=== PATIENT | female | born 1985 | race Caucasian/White ===

== ENCOUNTER → 2017-09-28 | Outpatient (CLI) | payer OTHER ==
--- NOTE | 2017-09-28 13:14 | MR ---
EXAMINATION TYPE: MR brain wo con DATE OF EXAM: 09/28/2017 COMPARISON: NONE HISTORY: Cervicalgia, Lumbago, Tremor TECHNIQUE: Multiplanar, multisequence images of the brain and brainstem is performed without intravenous contras t. FINDINGS: Diffusion weighted images demonstrate no evidence of a recent infarct or other diffusion ab normality. There is no extra-axial fluid collection. There is a single punctate focus of increased F LAIR/T2 signal within the centrum semiovale of the left frontal lobe on IR fat sat axial image 27 chuck suring 0.4 x 0.3 cm. No other significant white matter abnormality is appreciated. The ventricular s ystem and cisternal spaces are normal in size and appearance. The brain volume is age appropriate. R etained secretions are seen within the posterior nasopharynx. Midline structures demonstrate normal morphology. The craniocervical junction appears within normal limits. Scant mucosal thickening is seen within the ethmoid sinuses. The remaining visualized sinuse s are clear and the globes are intact. Multiple prominent but nonenlarged occipital and intraparotid lymph nodes are incidentally noted. IMPRESSION: 1. Single punctate focus of nonspecific white matter change within the centrum semiovale of the left frontal lobe. This is most likely related to focal sequela of microangiopathy or prior injury. Much l ess likely considerations are for vasculitis or demyelinating disease. 2. No evidence of intracranial mass effect or acute territorial infarct. 3. Minimal ethmoidal and nasal sinus disease.
--- NOTE | 2017-09-28 13:50 | MR ---
EXAMINATION TYPE: MR cspine/lspine wo con DATE OF EXAM: 09/28/2017 COMPARISON: NONE HISTORY: Cervicalgia, Lumbago, Tremor TECHNIQUE: Multiplanar, multisequence imaging of the lumbar spine is performed without IV contrast. FINDINGS: Cervical spine: Sagittal images of the cervical spine show vertebral body heights and alignment to appear satisfactor y. The intervertebral discs demonstrate normal heights and hydration other than mild disc desiccation at C4-C5 and C5-C6. The cervical cord is of normal signal. The bone marrow signal intensity is wit hin normal limits. There is straightening of the usual cervical lordosis. C2-C4: No significant disc disease, spinal canal stenosis or neural foraminal narrowing. C4-C5: There is a small posterior disc osteophyte complex and mild uncovertebral hypertrophy minimall y narrowing the left neural foramen and mildly narrowing the ventral subarachnoid space without signi ficant spinal canal stenosis. C5-C6: There is a broad-based disc bulge/disc osteophyte complex and mild uncovertebral hypertrophy m inimally narrowing the bilateral neural foramen and narrowing the ventral subarachnoid space creating mild spinal canal stenosis. No abnormal cervical cord signal. C6-T1: No significant disc disease, spinal canal stenosis or neural foraminal narrowing. Lumbar spine: Multilevel Modic type II endplate sclerosis is seen at the inferior endplate of L3, both superior and inferior endplates of L4, and superior endplate of L5. Disc desiccation is seen at L3-L4 and L4-L5. Remaining discs of the lumbar spine maintain normal hydration. Otherwise osseous bone marrow signal i s within normal limits. Disc desiccation is also seen T11-T12. The disc is not evaluated on axial evans ges at this level. Lumbar vertebral bodies maintain normal vertebral body heights and alignment. Conu s medullaris is unremarkable and terminates at L1-L2. L1-L2: No significant disc disease, spinal canal stenosis or neural foraminal narrowing. L2-L3: No significant disc disease, spinal canal stenosis or neural foraminal narrowing. L3-L4: There is a right eccentric broad-based disc bulge and minimal facet arthropathy without spinal canal stenosis. There is mild right neural foraminal narrowing. Left neural foramen is patent. L4-L5: There is a broad-based right eccentric disc bulge creating minimal right neural foraminal narr owing. Mild left facet arthropathy is noted. Left neural foramen is patent. No focality to suggest di sc herniation. No spinal canal stenosis. L5-S1: No significant disc disease, spinal canal stenosis or neural foraminal narrowing. IMPRESSION: 1. No evidence of disc herniation within the cervical spine or lumbar spine. 2. Mild degenerative disc disease within the cervical spine at C4-C6 creating mild spinal canal steno sis at C5-C6 and minimal neural foraminal narrowing as described above. 3. Mild multilevel degenerative disc disease of the lumbar spine without spinal canal stenosis. Mild right neural foraminal narrowing at L3-L5.
== END | disposition home or self-care (01) ==
LOC: RADMRIMAIN 10:56
PROVIDERS: ATTEND Family Medicine
DX: M48.02 Spinal stenosis, cervical region (principal); M50.321 Other cervical disc degeneration at C4-C5 level; M99.73 Connective tissue and disc stenosis of intervertebral foramina of lumbar region; M51.36 Other intervertebral disc degeneration, lumbar region; R90.89 Other abnormal findings on diagnostic imaging of central nervous system; R25.1 Tremor, unspecified
CPT/HCPCS: 70551; 72141; 72148

== ENCOUNTER → 2017-10-26 | Outpatient (CLI) | payer OTHER ==
--- NOTE | 2017-10-26 10:52 | MR ---
EXAMINATION TYPE: MR angio head wo con DATE OF EXAM: 10/26/2017 COMPARISON: NONE HISTORY: Headache / Family hx of brain aneurysm TECHNIQUE: Utilizing 3-D [id number] intracranial MRA of the [place] was performed. FINDINGS: The vertebrobasilar and carotid systems are patent. There is no sizable aneurysm or vascular malform ation. There is a hypoplastic A1 segment of the right anterior cerebral artery. Left vertebral arter y dominant. IMPRESSION: 1. No evidence of vascular malformation or sizable aneurysm.
== END ==
LOC: RADMRIMAIN 10:04
PROVIDERS: ATTEND Family Medicine
DX: R51 Headache (principal); Z82.49 Family history of ischemic heart disease and other diseases of the circulatory system
CPT/HCPCS: 70544

== ENCOUNTER → 2019-09-03 | Outpatient (CLI) | payer OTHER | END | disposition home or self-care (01) | LOC: LABWHC1 11:35 | PROVIDERS: ATTEND Family Medicine | DX: H66.91 Otitis media, unspecified, right ear (principal); R09.81 Nasal congestion; R68.83 Chills (without fever) | CPT/HCPCS: 87502 ==

== ENCOUNTER → 2022-01-27 | Outpatient (CLI) | payer OTHER ==
--- NOTE | 2022-01-29 11:15 | US ---
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 Pt states pelvic pain, bloating TECHNIQUE: Transabdominal sonographic images of the pelvis were acquired. Transvaginal sonographic i mages were medically necessary to better assess the anatomy. Date of LMP: 01/01/2022 FINDINGS: EXAM MEASUREMENTS: Uterus: 7.1 x 3.1 x 4.6 cm Endometrial Stripe: 0.6 cm Right Ovary: 2.3 x 1.8 x 1.9 cm Geospatial Scientist notes: Severely, morbidly obese pt, difficult to image pelvis 1. Uterus: Anteverted slightly heterogeneous myometrium, 0.8 cm Nabothian cyst in cervix 2. Endometrium: wnl 3. Right Ovary: wnl demonstrating some follicular change. 4. Left Ovary: Obscured by overlying bowel gas 5. Bilateral Adnexa: wnl 6. Posterior cul-de-sac: wnl IMPRESSION: 1. Slightly heterogeneous myometrium may be technical owing to large body habitus or could reflect di ffuse small fibroid change or adenomyosis. 2. Endometrial stripe measuring 6 mm. 3. An 8 mm cervical nabothian cyst noted. 4. The left ovary is obscured and not assessed.
== END | disposition home or self-care (01) ==
LOC: RADUSWWP 15:35
PROVIDERS: ATTEND Obstetrics & Gynecology
DX: Z01.419 Encounter for gynecological examination (general) (routine) without abnormal findings (principal)
CPT/HCPCS: 76830; 76856

== ENCOUNTER 2024-03-27 22:05 | Emergency (ER) | payer OTHER ==
[2024-03-27 22:52] LABS: Appearance,Urine Cloudy (Clear); Bilirubin,Urine Negative (Negative); Blood,Urine Large (Negative); Color,Urine Light Yellow; Glucose,Urine (UA) Negative (Negative); Ketones,Urine Negative (Negative); Leukocyte Esterase,Urine Trace (Negative); Mucus,Urine Rare /hpf; Nitrite,Urine Negative (Negative); PH, Urine 5.5 (5.0-8.0); Protein,Urine Negative (Negative); RBC,Urine 1 /hpf (0-5); Specific Gravity,Urine 1.024 (1.001-1.035); Squamous Epithelial Cell,Urine 4 /hpf (0-4); Urobilinogen,Urine <2.0 mg/dL (<2.0); WBC,Urine 4 /hpf (0-5)
--- NOTE | 2024-03-27 22:52 | ED ---
Female Urogenital HPI - General Source: patient, family, RN notes reviewed Mode of arrival: ambulatory Limitations: no limitations - History of Present Illness Last Menstrual Period: 03/27/24 <Doris Collazo - Last Filed: 03/28/24 00:06> <Ki Kyle - Last Filed: 03/28/24 03:11> - General Chief complaint: Vaginal Bleeding Stated complaint: Vaginal Bleeding Time Seen by Provider: 03/27/24 22:21 - History of Present Illness Initial comments: This is a 38-year-old female presents emergency department chief complaint of abdominal cramping over 4 days and vaginal bleeding started this evening. Patient states that she has been experiencing pain in the lower abdomen and back pain over the past days however had episode of vaginal bleeding. Patient has a history of bilateral tubal ligation 2 years ago and states that she has not had a menstrual cycle since. She denies urinary symptoms of dysuria, hematuria, increase in urinary frequency or urgency. Denies fevers, chills. Endorses nausea, denies emesis. denies passage of clots, states that this pain does feel similar to when she has had a hemorrhagic ovarian cyst in the past. (Doris Collazo) - Related Data Allergies Allergy/AdvReac Type Severity Reaction Status Date / Time amoxicillin [From Amoxil] Allergy Rash/Hives Verified 03/27/24 22:19 latex Allergy Rash/Hives Verified 03/27/24 22:19 Penicillins Allergy Rash/Hives Verified 03/27/24 22:19 Review of Systems ROS Other: All systems not noted in ROS Statement are negative. <Doris Collazo - Last Filed: 03/28/24 00:06> ROS Other: All systems not noted in ROS Statement are negative. <Ki Kyle - Last Filed: 03/28/24 03:11> ROS Statement: Those systems with pertinent positive or pertinent negative responses have been documented in the HPI. Past Medical History Additional Past Medical History / Comment(s): buldging disc Past Surgical History: Adenoidectomy, Tonsillectomy, Tubal Ligation Smoking Status: Current every day smoker <Doris Collazo - Last Filed: 03/28/24 00:06> General Exam Limitations: no limitations General appearance: alert, in no apparent distress Eye exam: Present: normal appearance, PERRL, EOMI. Absent: scleral icterus, conjunctival injection, periorbital swelling ENT exam: Present: normal exam, mucous membranes moist Neck exam: Present: normal inspection. Absent: tenderness, meningismus, lymphadenopathy Respiratory exam: Present: normal lung sounds bilaterally. Absent: respiratory distress, wheezes, rales, rhonchi, stridor Cardiovascular Exam: Present: regular rate, normal rhythm, normal heart sounds. Absent: systolic murmur, diastolic murmur, rubs, gallop, clicks GI/Abdominal exam: Present: soft, tenderness (right lower abdomen), normal bowel sounds. Absent: guarding, rebound, rigid Extremities exam: Present: normal inspection, full ROM, normal capillary refill. Absent: tenderness, pedal edema, joint swelling, calf tenderness Back exam: Present: full ROM, tenderness (right lumbar) Neurological exam: Present: alert, oriented X3, CN II-XII intact <Doris Collazo - Last Filed: 03/28/24 00:06> Course Vital Signs 03/27/24 03/28/24 03/28/24 22:16 00:04 02:31 Temperature 97.8 F 98.1 F Pulse Rate 65 57 L 59 L Respiratory 16 18 18 Rate Blood Pressure 175/109 153/85 148/93 O2 Sat by Pulse 95 97 96 Oximetry 03/28/24 02:36 Temperature 98.1 F Pulse Rate Respiratory Rate Blood Pressure O2 Sat by Pulse Oximetry Medical Decision Making - Lab Data Result diagrams: 03/27/24 22:57 03/27/24 22:57 <Doris Collazo - Last Filed: 03/28/24 00:06> - Lab Data Result diagrams: 03/27/24 22:57 03/27/24 22:57 <Ki Kyle - Last Filed: 03/28/24 03:11> - Medical Decision Making Was pt. sent in by a medical professional or institution (, PA, EMBEDDED SOFTWARE DESIGN ENGINEER, urgent care, hospital, or intermediate...) When possible be specific @ -[No] Did you speak to anyone other than the patient for history (EMS, parent, family, police, friend...)? What history was obtained from this source @ -[No] Did you review nursing and triage notes (agree or disagree)? Why? @ -[I reviewed and agree with nursing and triage notes] Were old charts reviewed (outside hosp., previous admission, EMS record, old EKG, old radiological studies, urgent care reports/EKG's, intermediate records)? Report findings @ -[No old charts were reviewed] Differential Diagnosis (chest pain, altered mental status, abdominal pain women, abdominal pain men, vaginal bleeding, weakness, fever, dyspnea, syncope, headache, dizziness, GI bleed, back pain, seizure, CVA, palpatations, mental health, musculoskeletal)? @ -Differential Abdominal Pain Women: Appendicitis, Cholecystitis, diverticulosis, ischemic bowel, pancreatitis, hepatitis, UTI, gastroenteritis, AAA, incarcerated hernia, bowel obstruction, constipation, inflammatory bowel, hepatitis, peptic ulcer disease, splenic infarction, perforated viscus, vulvitis, ovarian torsion, PID, kidney stone, placenta abruption, this is not meant to be an all-inclusive list EKG interpreted by me (3pts min.). @ -none X-rays interpreted by me (1pt min.). @ -[None done] CT interpreted by me (1pt min.). @ -[None done] U/S interpreted by me (1pt. min.). @ -[None done] What testing was considered but not performed or refused? (CT, X-rays, U/S, labs)? Why? @ -[None] What meds were considered but not given or refused? Why? @ -[None] Did you discuss the management of the patient with other professionals (professionals i.e. , PA, EMBEDDED SOFTWARE DESIGN ENGINEER, lab, RT, psych nurse, licensed master social worker, bath tester, teacher, staff electronic warfare officer, ed case manager)? Give summary @ -[No] Was smoking cessation discussed for >3mins.? @ -[No] Was critical care preformed (if so, how long)? @ -[No] Were there social determinants of health that impacted care today? How? (Homelessness, low income, unemployed, alcoholism, drug addiction, tr ansportation, low edu. Level, literacy, decrease access to med. care, long term, rehab)? @ -[No] Was there de-escalation of care discussed even if they declined (Discuss DNR or withdrawal of care, Hospice)? DNR status @ -[No] What co-morbidities impacted this encounter? (DM, HTN, Smoking, COPD, CAD, Canc er, CVA, ARF, Chemo, Hep., AIDS, mental health diagnosis, sleep apnea, morbid obesity)? @ -[None] Was patient admitted / discharged? Hospital course, mention meds given and route, prescriptions, significant lab abnormalities, going to OR and other pertinent info. @ -8-year-old female with vaginal bleeding and abdominal pain. On examination patient noted to have palpable callus of the right lower abdomen with radiation to her back. Due to patient experiencing vaginal bleeding and cramping she will be evaluated via labs and transvaginal ultrasound and symptomatically treated with Zofran and Toradol. labs remarkable for leukocytosis of 19.3, elevated neutrophils at 10.3. CMP unremarkable. Urinalysis reveals large blood, hcg negative. Patient's ultrasound results yes, patient has elevated white blood cell count of 19.3. She will be sent for CT of the abdomen and pelvis for fu rther evaluation of abdominal pain and elevated white blood cell count and given a liter fluid bolus in addition to further pain medication. Patient is signed out to Ki Kyle PA-C pending US and CT results. Undiagnosed new problem with uncertain prognosis? @ -[No] Drug Therapy requiring intensive monitoring for toxicity (Heparin, Nitro, Insulin, Cardizem)? @ -[No] Were any procedures done? @ -[No] Diagnosis/symptom? @ -[default] Acute, or Chronic, or Acute on Chronic? @ -[default] Uncomplicated (without systemic symptoms) or Complicated (systemic symptoms)? @ -[default] Side effects of treatment? @ -[No] Exacerbation, Progression, or Severe Exacerbation? @ -[No] Poses a threat to life or bodily function? How? (Chest pain, [place], [place], pneumonia, PE, COPD, DKA, ARF, appy, cholecystitis, CVA, Diverticulitis, Homicidal, Suicidal, threat to staff... and all critical care pts) @ -[No] (Doris Collazo) Patient signed out to me by Doris Collazo PA-C pending ultrasound and CT results. Ultrasound shows no acute findings. 2.9 cm left ovarian cyst. CT shows no acute findings. On reassessment the patient shows no acute signs of distress. She states that her pain is minimal. She is educated on today's findings and supportive management. Instructed to follow-up with her PARK AIDE. Discharged. Follow-up with PCP. Report back to ER with any new or worsening symptoms. Discussed return parameters and answered all questions. Patient conveyed verbal understanding and agreed to the plan. I discussed this case in detail with my attending Dr. Rodriguez Diagnosis/symptom? @Ovarian cyst Acute, or Chronic, or Acute on Chronic? @Acute Uncomplicated (without systemic symptoms) or Complicated (systemic symptoms)? @Uncomplicated Side effects of treatment? @None Exacerbation, Progression, or Severe Exacerbation] @No Poses a threat to life or bodily function? @No (Ki Kyle) - Lab Data Lab Results 03/27/24 03/27/24 03/27/24 Range/Units 22:42 22:42 22:57 WBC 19.3 H (3.8-10.6) k/uL RBC 4.98 (3.80-5.40) m/uL Hgb 14.6 (11.4-16.0) gm/dL Hct 45.7 (34.0-46.0) % MCV 91.6 (80.0-100.0) fL MCH 29.4 (25.0-35.0) pg MCHC 32.1 (31.0-37.0) g/dL RDW 12.8 (11.5-15.5) % Plt Count 341 (150-450) k/uL MPV 7.1 Neutrophils % 53 % Lymphocytes % 38 % Monocytes % 5 % Eosinophils % 1 % Basophils % 1 % Neutrophils # 10.3 H (1.3-7.7) k/uL Lymphocytes # 7.3 H (1.0-4.8) k/uL Monocytes # 1.0 (0-1.0) k/uL Eosinophils # 0.3 (0-0.7) k/uL Basophils # 0.1 (0-0.2) k/uL PT (10.0-12.5) sec INR (<1.2) APTT (22.0-30.0) sec Sodium (137-145) mmol/L Potassium (3.5-5.1) mmol/L Chloride (98-107) mmol/L Carbon Dioxide (22-30) mmol/L Anion Gap mmol/L BUN (7-17) mg/dL Creatinine (0.52-1.04) mg/dL Est GFR (CKD-EPI)AfAm (>60 ml/min/1.73 sqM) Est GFR (CKD-EPI)NonAf (>60 ml/min/1.73 sqM) Glucose (74-99) mg/dL Calcium (8.4-10.2) mg/dL Total Bilirubin (0.2-1.3) mg/dL AST (14-36) U/L ALT (4-34) U/L Alkaline Phosphatase (38-126) U/L Total Protein (6.3-8.2) g/dL Albumin (3.5-5.0) g/dL Urine Color Light Yellow Urine Appearance Cloudy H (Clear) Urine pH 5.5 (5.0-8.0) Ur Specific Barnum 1.024 (1.001-1.035) Urine Protein Negative (Negative) Urine Glucose (UA) Negative (Negative) Urine Ketones Negative (Negative) Urine Blood Large H (Negative) Urine Nitrite Negative (Negative) Urine Bilirubin Negative (Negative) Urine Urobilinogen <2.0 (<2.0) mg/dL Ur Leukocyte Esterase Trace H (Negative) Urine RBC 1 (0-5) /hpf Urine WBC 4 (0-5) /hpf Ur Squamous Epith Cells 4 (0-4) /hpf Urine Mucus Rare H (None) /hpf Urine HCG, Qual Not Detected (Not Detectd) 03/27/24 03/27/24 Range/Units 22:57 22:57 WBC (3.8-10.6) k/uL RBC (3.80-5.40) m/uL Hgb (11.4-16.0) gm/dL Hct (34.0-46.0) % MCV (80.0-100.0) fL MCH (25.0-35.0) pg MCHC (31.0-37.0) g/dL RDW (11.5-15.5) % Plt Count (150-450) k/uL MPV Neutrophils % % Lymphocytes % % Monocytes % % Eosinophils % % Basophils % % Neutrophils # (1.3-7.7) k/uL Lymphocytes # (1.0-4.8) k/uL Monocytes # (0-1.0) k/uL Eosinophils # (0-0.7) k/uL Basophils # (0-0.2) k/uL PT 9.8 L (10.0-12.5) sec INR 0.9 (<1.2) APTT 24.8 (22.0-30.0) sec Sodium 138 (137-145) mmol/L Potassium 3.9 (3.5-5.1) mmol/L Chloride 106 (98-107) mmol/L Carbon Dioxide 26 (22-30) mmol/L Anion Gap 6 mmol/L BUN 20 H (7-17) mg/dL Creatinine 0.73 (0.52-1.04) mg/dL Est GFR (CKD-EPI)AfAm >90 (>60 ml/min/1.73 sqM) Est GFR (CKD-EPI)NonAf >90 (>60 ml/min/1.73 sqM) Glucose 85 (74-99) mg/dL Calcium 9.3 (8.4-10.2) mg/dL Total Bilirubin 0.4 (0.2-1.3) mg/dL AST 19 (14-36) U/L ALT 18 (4-34) U/L Alkaline Phosphatase 79 (38-126) U/L Total Protein 6.5 (6.3-8.2) g/dL Albumin 3.9 (3.5-5.0) g/dL Urine Color Urine Appearance (Clear) Urine pH (5.0-8.0) Ur Specific Barnum (1.001-1.035) Urine Protein (Negative) Urine Glucose (UA) (Negative) Urine Ketones (Negative) Urine Blood (Negative) Urine Nitrite (Negative) Urine Bilirubin (Negative) Urine Urobilinogen (<2.0) mg/dL Ur Leukocyte Esterase (Negative) Urine RBC (0-5) /hpf Urine WBC (0-5) /hpf Ur Squamous Epith Cells (0-4) /hpf Urine Mucus (None) /hpf Urine HCG, Qual (Not Detectd) Disposition <Doris Collazo - Last Filed: 03/28/24 00:06> Is patient prescribed a controlled substance at d/c from ED?: No Time of Disposition: 02:15 <Ki Kyle - Last Filed: 03/28/24 03:11> Clinical Impression: Ovarian cyst Disposition: HOME SELF-CARE Condition: Good Instructions (If sedation given, give patient instructions): Ovarian Cyst (ED) Additional Instructions: Follow-up with your PARK AIDE. Report back to ER with any new or worsening symptoms. Referrals: Esthela Hammond MD [Primary Care Provider] - 1-2 days
[2024-03-27] MEDS: ONDANSETRON 4 MG/2 ML VIAL IVP STA (23:05)
[2024-03-27] MEDS: KETOROLAC 15 MG/ML 1 ML VIAL IVP STA (23:06)
[2024-03-27 23:22] LABS: Basophils # (A) 0.1 k/uL (0-0.2); Basophils % (A) 1 %; Eosinophils # (A) 0.3 k/uL (0-0.7); Eosinophils % (A) 1 %; HCT 45.7 % (34.0-46.0); HGB 14.6 gm/dL (11.4-16.0); Lymphocytes # (A) 7.3 k/uL (1.0-4.8); Lymphocytes % (A) 38 %; MCH 29.4 pg (25.0-35.0); MCHC 32.1 g/dL (31.0-37.0); MCV 91.6 fL (80.0-100.0); Mean Platelet Volume 7.1; Monocytes % (A) 5 %; Neutrophils # (A) 10.3 k/uL (1.3-7.7); Neutrophils % (A) 53 %; Platelet Count 341 k/uL (150-450); RBC 4.98 m/uL (3.80-5.40); RDW 12.8 % (11.5-15.5); WBC 19.3 k/uL (3.8-10.6)
[2024-03-27 23:42] LABS: ALT 18 U/L (4-34); AST 19 U/L (14-36); African American GFR (CKD) >90 (>60 ml/min/1.73 sqM); Albumin 3.9 g/dL (3.5-5.0); Alkaline Phosphatase 79 U/L (38-126); Anion Gap 6 mmol/L; Blood Urea Nitrogen 20 mg/dL (7-17); Calcium 9.3 mg/dL (8.4-10.2); Carbon Dioxide 26 mmol/L (22-30); Chloride 106 mmol/L (98-107); Glucose 85 mg/dL (74-99); Non-African American GFR(CKD) >90 (>60 ml/min/1.73 sqM); Potassium 3.9 mmol/L (3.5-5.1); Sodium 138 mmol/L (137-145); Total Bilirubin 0.4 mg/dL (0.2-1.3); Total Protein 6.5 g/dL (6.3-8.2)
[2024-03-27 23:43] LABS: INR 0.9 (<1.2); Partial Thromboplastin Time 24.8 sec (22.0-30.0); Prothrombin Time 9.8 sec (10.0-12.5)
[2024-03-28 00:04] VITALS: RESP 18; TEMP 98.1
[2024-03-28] MEDS: SODIUM CHLORIDE 0.9% 1,000 ML IV STA (00:38)
[2024-03-28] MEDS: HYDROmorphone 0.5 MG/0.5 ML SYRINGE IVP STA (00:40)
--- NOTE | 2024-03-28 01:26 | US ---
EXAM: US Pelvis Transvaginal CLINICAL HISTORY: ITS.REASON US Reason: heavy bleeding, pelvic cramping TECHNIQUE: Real-time transvaginal pelvic ultrasound with image documentation. Transvaginal imaging was used for better evaluation of the endometrium and adnexa. COMPARISON: No relevant prior studies available. FINDINGS: 1. Uterus: Anteverted There is a 1.2 x 0.5cm Nabothian cyst seen within the cervix. Otherwise appears WNL 2. Endometrium: wnl as best seen 3. Right Ovary: wnl as best seen today 4. Left Ovary: There is a 2.9 x 2.1 x 2.4cm anechoic area seen within the left ovary. Spectral, color and waveform doppler imaging shows good arterial and venous flow within the ovaries; there is no evidence for ovarian torsion. 5. Bilateral Adnexa: Obscured by overlying bowel gas 6. Posterior cul-de-sac: wnl IMPRESSION: No acute findings. 2.9 cm left ovarian cyst
--- NOTE | 2024-03-28 01:45 | CT ---
EXAM: CT Abdomen and Pelvis With Intravenous Contrast CLINICAL HISTORY: ITS.REASON CT Reason: ab pain TECHNIQUE: Axial computed tomography images of the abdomen and pelvis with intravenous contrast. CTDI is 63.7 mGy and DLP is 3892.8 mGy-cm. This CT exam was performed using one or more of the following dose reduction techniques: automated exposure control, adjustment of the mA and/or kV according to patient size, and/or use of iterative reconstruction technique. COMPARISON: No relevant prior studies available. FINDINGS: ABDOMEN: Liver: Unremarkable. Gallbladder and bile ducts: Unremarkable. Pancreas: Unremarkable. Spleen: Unremarkable. Adrenals: Unremarkable. Kidneys and ureters: No hydronephrosis. Stomach and bowel: No bowel obstruction. No bowel wall thickening. PELVIS: Appendix: No evidence of appendicitis. Bladder: Unremarkable. Reproductive: 2.7 cm left ovarian cyst/follicle. ABDOMEN and PELVIS: Intraperitoneal space: Unremarkable. Bones/joints: No acute fractures. Severe disc height loss with vacuum phenomenon at L3-4. Soft tissues: Unremarkable. Vasculature: No abdominal aortic aneurysm. Lymph nodes: No enlarged lymph nodes. IMPRESSION: No acute findings.
[2024-03-28 02:33] VITALS: BP 148/93; PULSE 59
[2024-03-28] MEDS: HYDROcodone/APAP 7.5-325MG 1 EACH TAB PO ONE (02:33)
== END 2024-03-28 02:36 | disposition home or self-care (01) ==
LOC: EC 22:05
DX: N83.202 Unspecified ovarian cyst, left side (principal); D72.829 Elevated white blood cell count, unspecified; Z88.0 Allergy status to penicillin; Z91.040 Latex allergy status
CPT/HCPCS: 36415; 80053; 85025; 85610; 85730; 81001; 81025; 93975; 76830; 74177; 99284; 96374; 96375 ×2; 96361 ×2; J2405; J1885; J1170; Q9967